=== PATIENT | female | born 1965 | race Caucasian/White ===

== ENCOUNTER 2017-06-16 21:00 | Inpatient (IN) | payer OTHER ==
[~2017-06-16] VITALS: Ht 170.2 cm; Wt 63.5 kg
--- NOTE | ~2017-06-16 | CO ---
Unit #: [id number] #: [id number] Patient: HONG XIAO [id number] [facility] [address] [place] [address] [id number] I MR#: [id number] NAME: HONG XIAO ROOM: [facility] Age: 51 Sex: F Admission Date: 06/16/2017 : 1965 Attending Physician: Lukasz Palomino M.D. Primary Care Physician: Primary Care Physician No CONSULTATION REPORT REASON FOR CONSULT Patient's hypertension with DT's. SUBJECTIVE Patient unable to clearly discuss any problems. OBJECTIVE VITAL SIGNS: 8 a.m. 151/99, heart rate 91; 12 noon blood pressure 72/53, heart rate 98; 4 p.m. blood pressure 170/113, heart rate 90. HEART: Regular rate, rhythm. LUNGS: Clear to auscultation bilaterally. ASSESSMENT Hypertension related to alcohol withdrawal. PLAN Patient will have clonidine 0.1 mg q. 6 hours p.r.n. for blood pressure greater than 140/90, to be held if heart rate less 60. Dictated by... Kristen HayPIsabelaRHolly COFFMAN/janny TD: 06/18/2017 20:08 JOB #: [id number] CONSULTATION REPORT Page 1 of 1 X Salma Cook APR X CONSULTATION REPORT
--- NOTE | ~2017-06-16 | HP ---
Unit #: [id number] #: [id number] Patient: ALLEN XIAO [id number] [place] [address] [id number] MR#: [id number] NAME: ALLEN XIAO ROOM: [facility] Age: 51 Sex: F Admission Date: 06/16/2017 : 1965 Attending Physician: Lukasz Palomino M.D. Admitting Physician: Lukasz Palomino M.D. Primary Care Physician: Primary Care Physician No HISTORY AND PHYSICAL HISTORY OF PRESENT ILLNESS Allen is a 51-year-old female admitted on 06/16/[address] [place] [address] for detox from alcohol. PAST MEDICAL HISTORY History of bleeding ulcer. PAST SURGICAL HISTORY A bleeding ulcer that caused sepsis and required surgical intervention. ALLERGIES No known drug allergies. SOCIAL HISTORY She smokes 1-1/2 pack of cigarettes daily. Drinks a fifth of alcohol daily. No illegal drug use. She is currently single and living with her son. FAMILY HISTORY Noncontributory. REVIEW OF SYSTEMS CONSTITUTIONAL: No fever or chills. HEENT: Denies any sore throat, ear pain or runny nose. CARDIOVASCULAR: Denies chest pain, irregular heart rhythm or palpitations. CHEST: Denies shortness of breath or cough. No hemoptysis. GASTROINTESTINAL: Denies nausea, vomiting, diarrhea or chronic constipation. ENDOCRINE: Denies history of increased thirst or urination. No recent significant weight loss or gain. GENITOURINARY: Denies dysuria, frequency, or hematuria. SKIN: Denies any rashes. HEMATOLOGIC: Denies history of increased bleeding or bruising. MUSCULOSKELETAL: Denies any hot, swollen joints. No generalized muscle pain. NEUROLOGIC: Denies problems with vision or speech. No frequent, severe headaches. No numbness, tingling or weakness in any extremities. Denies loss of bladder or bowel control. CURRENT MEDICATIONS 1. Zoloft. 2. Protonix. Unit #: [id number] #: [id number] Patient: ALLEN XIAO PHYSICAL EXAMINATION GENERAL: Alert, oriented, in no acute distress. VITAL SIGNS: Blood pressure 130/85, heart rate 77, respirations 18, temperature 98.4. HEIGHT: 5 feet 7. WEIGHT: 140 pounds. SKIN: Warm and dry without rash or lesion. HEENT: Normocephalic. TMs not viewed. Oral and nasal passages clear. Conjunctivae clear. PERRLA. EOMs intact. NECK: Supple without lymphadenopathy or thyromegaly. HEART: Regular rate and rhythm without murmur. LUNGS: Clear. ABDOMEN: Soft, nontender, without masses or hepatosplenomegaly. : Not done. EXTREMITIES: No evidence of cyanosis, clubbing or edema. Moves all without focal deficit. NEUROLOGICAL: Grossly within normal limits. Cranial Nerves: II: Visual horn are intact. III, IV AND : Extraocular movements are intact. Pupils are equal, round and reactive to light. V: Facial sensation is grossly normal. VII: Facial movements and expression are normal. VIII: Auditory acuity grossly intact. IX, X: Uvula is midline. Phonation is normal. XI: Patient shrugs shoulders and turns head normally. XII: Tongue protrudes in the midline. Sensory and Motor Function: Sensory and motor sensation is grossly normal. Motor: moves all extremities well. Coordination: Gait is normal. Deep Tendon Reflexes: Intact. IMPRESSION 1. Psychiatric admission. 2. History of bleeding ulcer. RECOMMENDATIONS PSYCHIATRIC: Per psychiatrist. MEDICAL: No contraindication to participate in facility's activities. MEDICAL PROGNOSIS Good. MEDICAL CONDITION Stable. Dictated by... Melisa Gonzalez/janny TD: 06/17/2017 21:07 JOB #: [id number] Unit #: [id number] #: [id number] Patient: ALLEN XIAO HISTORY AND PHYSICAL Page 1 of 1 X ENRIQUE MCDONALD APRN X HISTORY AND PHYSICAL
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
--- NOTE | ~2017-06-16 | PN ---
Unit #: [id number] #: [id number] Patient: HONG TERRELL [id number] [facility] [address] [place] [address] [id number] I MR#: [id number] NAME: HONG TERRELL ROOM: [facility] Age: 51 Sex: F Admission Date: 06/16/2017 : 1965 Attending Physician: Lukasz Palomino M.D. Admitting Physician: Lukasz Palomino M.D. Primary Care Physician: Primary Care Physician Gladys LUCERO NOTES DATE OF SERVICE: 06/17/2017 SARAH Terrell is a 51-year-old female, seen on 06/17/2017. The patient interviewed, chart reviewed, and obtained information from nursing staff. The patient compliant and cooperative. Mood is sad, dysphoric, flat affect, guarded. The patient's vital signs; temperature 98.0, pulse 61, blood pressure 154/84. The patient is still reporting having withdrawal symptoms, sad and depressed. REVIEW OF SYSTEMS Complete review of systems unremarkable. MENTAL STATUS EXAMINATION General appearance, the patient dressed casually. Attention span and concentration, fair. Oriented in time, place, and person. Mood and affect, sad and dysphoric. Speech, monotone. Thought process, concrete. The patient denied any thoughts of harming self or others, but withdrawn, isolative, sad affect. Recent remote memory, poor. Insight and judgment, poor. DIAGNOSES 1. Alcohol use disorder, severe. 2. Opioid use disorder, severe. 3. Mood disorder, not otherwise specified. ASSESSMENT AND PLAN Advised to continue with current medication and therapeutic protocol. If needed, consider further adjustment of medication. Dictated by... Evelia Nicole/dean TD: 06/18/2017 02:46 JOB #: [id number] Unit #: [id number] #: [id number] Patient: HONG TERRELL BLAISEIRENA JAZMINE NOTES Page 1 of 1 X Lukasz Palomino MD PROGRESS NOTE
--- NOTE | ~2017-06-16 | PN ---
Unit #: [id number] #: [id number] Patient: ALLEN TERRELL [id number] [facility] [address] [place] [address] [id number] I MR#: [id number] NAME: ALLEN TERRELL ROOM: [facility] [place] Age: 51 Sex: F Admission Date: 06/16/2017 : 1965 Attending Physician: Lukasz Palomino M.D. Admitting Physician: Lukasz Palomino M.D. Primary Care Physician: Primary Care Physician Gladys ULCERO NOTES DATE OF SERVICE 06/19/2017 DISCUSSION Ms. Allen Terrell is a 51-year-old female seen on 06/19/2017. The patient interviewed, chart reviewed. Obtained information from nursing staff. The patient was found to have increased confusion, started on Haldol yesterday. Problem with disorganized behavior, disorganized thought process. Agitation, mood lability. The patient seems to be attending to internal stimuli. Admitted with alcohol detox. Subsequently the patient was sent to [facility] for medical evaluation and treatment. Complete Review of Systems: Unremarkable. MENTAL STATUS EXAMINATION General Appearance: The patient dressed casually. Attention span, concentration: Poor. Orientation: Unable to assess. Mood and affect labile. Speech: Disorganized. Thought process: Disorganized. Recent and remote memory: Poor. Insight and judgment: Poor. DIAGNOSES 1. Alcohol use disorder, severe. 2. Psychosis not otherwise specified. ASSESSMENT/PLAN Advised to transfer the patient to [facility] for medical evaluation and treatment. The patient possibly is having DTs (delirium tremens). Dictated by... Evelia Nicole/jessie TD: 06/21/2017 06:55 JOB #: [id number] Unit #: [id number] #: [id number] Patient: ALLEN TERRELL BLAISEIRENA PROGRESS NOTES Page 1 of 1 X Lukasz Palomino MD X PROGRESS NOTE
--- NOTE | ~2017-06-16 | PN ---
Unit #: [id number] #: [id number] Patient: ALLEN TERRELL [id number] [facility] [address] [place] [address] [id number] I MR#: [id number] NAME: ALLEN TERRELL ROOM: [facility] Age: 51 Sex: F Admission Date: 06/16/2017 : 1965 Attending Physician: Lukasz Palomino M.D. Admitting Physician: Lukasz Palomino M.D. Primary Care Physician: Primary Care Physician Gladys LUCERO NOTES DATE OF SERVICE: 06/18/2017 DISCUSSION Ms. Allen Terrell is a 51-year-old female. The patient interviewed, chart reviewed, and obtained information from nursing staff. The patient was throwing up this morning and subsequently received IM Phenergan. The patient still anxious, nervous, and guarded. The patient's urine drug screen was negative. Currently, having withdrawal from alcohol. The patient's hematocrit was 46.5. CMP was unremarkable, glucose 160 and creatinine 0.5. REVIEW OF SYSTEMS Complete review of systems unremarkable. MENTAL STATUS EXAMINATION General appearance, the patient dressed casually. The patient's vital signs; temperature 97.8, heart rate 86, respiratory rate 18, and blood pressure 112/68. Height 5 feet 7 inches. Attention span and concentration, fair. Oriented in place and person. Mood and affect, labile. Speech, monotone. Thought process, concrete. The patient denied any thoughts of harming self or others. Recent and remote memory, poor. Insight and judgment, poor. DIAGNOSIS Alcohol use disorder, severe. ASSESSMENT AND PLAN Advised to continue with current medication and therapeutic protocol. If needed, consider further adjustment of medication. Dictated by... Evelia Nicole/dean TD: 06/18/2017 15:29 JOB #: [id number] Unit #: [id number] #: [id number] Patient: ALLEN TERRELL PROGRESS NOTES Page 1 of 1 X Lukasz Palomino MD PROGRESS NOTE
[2017-06-17 09:42] LABS: BASOPHIL% 0.9 % (0-2.5); EOSINOPHIL# 0.1 X10e3 (0-0.7); EOSINOPHIL% 2.4 % (0.0-7.0); HEMATOCRIT 46.5 % (35.0-45.0); HEMOGLOBIN 15.4 gm/dL (12.0-16.0); LYMPHOCYTE# 0.8 X10e3 (1.0-3.5); LYMPHOCYTE% 18.5 % (17.0-45.0); MEAN CELL VOLUME 98.3 FL (83-96); MEAN CORPUSCULAR HEMOGLOBIN 32.6 PG (28-34); MEAN CORPUSCULAR HGB CONC 33.1 g/dL (30-36); MEAN PLATELET VOLUME 7.7 FL (6.5-11.5); MONOCYTE# 0.3 X10e3 (0-1.0); MONOCYTE% 7.2 % (3.0-12.0); NEUTROPHIL# 2.9 X10e3 (1.5-7.1); PLATELET COUNT 115 X10e3 (140-420); RED BLOOD COUNT 4.73 X10e (3.90-5.30); RED CELL DISTRIBUTION WIDTH 14.1 % (11.0-15.5); WHITE BLOOD COUNT 4.1 X10e3 (4.0-10.5)
[2017-06-17 09:55] LABS: DIFF IND NO
[2017-06-17 10:22] LABS: ALBUMIN SERUM 4.3 g/dL (3.5-5.0); BILIRUBIN,TOTAL 1.5 mg/dL (0.2-2.0); CREATININE SERUM 0.5 mg/dL (0.6-1.4); GLOM FILT RATE Estimated 110.5 mL/min (>60); POTASSIUM 3.8 mmol/L (3.5-5.1); PROTEIN TOTAL SERUM 6.7 g/dL (6.0-8.3)
[2017-06-17 12:32] LABS: URINE APPEARANCE CLEAR; URINE BILIRUBIN NEG (NEG); URINE BLOOD TRACE (NEG); URINE COLOR DK YELLOW; URINE GLUCOSE NEG (NEG); URINE KETONE 1+ (NEG); URINE LEUKOCYTE ESTERASE TRACE (NEG); URINE NITRATE NEG (NEG); URINE PROTEIN 3+ (NEG); URINE SPECIFIC GRAVITY 1.023 (1.003-1.035)
[2017-06-17 12:35] LABS: URBCS1 AUWI 0-2 /[HPF] (0-2); URINE BACTERIA AUWI 1+ (NEGATIVE); URINE SQUAMOUS EPITHELIAL CELL FEW /[HPF]
[2017-06-17 13:01] LABS: AMPHETAMINE NEG (NEG); BARBITURATES NEG (NEG); BENZODIAZEPINES NEG (NEG); COCAINE NEG (NEG); MARIJUANA NEG (NEG); OPIATES NEG (NEG); TRICYCLIC ANTIDEPRESSANTS NEG (NEG); U METHADONE NEG (NEG)
== END 2017-06-19 22:24 | disposition short-term general hospital (02) | DRG 897 ==
LOC: P2S 23:20
PROVIDERS: Psychiatry & Neurology Psychiatry
PROC: HZ2ZZZZ Detoxification Services for Substance Abuse Treatment (ICD-10-PCS; principal; 2017-06-16)
DX: F10.239 Alcohol dependence with withdrawal, unspecified (principal); F11.20 Opioid dependence, uncomplicated; F10.231 Alcohol dependence with withdrawal delirium; F39 Unspecified mood [affective] disorder; F29 Unspecified psychosis not due to a substance or known physiological condition; F32.9 Major depressive disorder, single episode, unspecified; K21.9 Gastro-esophageal reflux disease without esophagitis; F17.210 Nicotine dependence, cigarettes, uncomplicated; I10 Essential (primary) hypertension
CPT/HCPCS: 80053; 80307; 81003; 85025; J2550; J3486